=== PATIENT | male | born 2000 | race African-American/Black ===

== ENCOUNTER 2023-08-27 15:51 | Emergency (ER) | payer MEDICAID, OTHER ==
[~2023-08-27] VITALS: Ht 172.7 cm; Wt 63.5 kg
[2023-08-27 16:11] VITALS: BP 114/66; PULSE 72; RESP 16; TEMP 98.2; O2SAT 99
== END 2023-08-27 16:50 | disposition home or self-care (01) ==
LOC: ER 15:51
DX: S61.210D Laceration without foreign body of right index finger without damage to nail, subsequent encounter (principal); X58.XXXD Exposure to other specified factors, subsequent encounter
CPT/HCPCS: 99281